=== PATIENT | male | born 1970 ===

== ENCOUNTER → 2020-02-12 | Outpatient (CLI) | payer BC | LOC: SJCVCIMAG 08:16 | PROVIDERS: ATTEND Internal Medicine Cardiovascular Disease | DX: I35.1 Nonrheumatic aortic (valve) insufficiency (principal); I11.9 Hypertensive heart disease without heart failure; I25.10 Atherosclerotic heart disease of native coronary artery without angina pectoris; Z86.19 Personal history of other infectious and parasitic diseases ==